=== PATIENT | female | born 1960 | race Caucasian/White ===

== ENCOUNTER 2016-12-07 15:28 | Emergency (ER) | payer BC ==
[2016-12-07] MEDS ORDERED: ONDANSETRON 4 MG/2 ML VIAL IVP STA (17:16)
[2016-12-07] MEDS ORDERED: SODIUM CHLORIDE 0.9% 1,000 ML IV STA (17:16)
[2016-12-07] MEDS ORDERED: ACETAMINOPHEN TAB 500 MG TAB PO STA (17:17)
[2016-12-07 17:37] LABS: Basophils % (A) 1 %; CH 31.2; CHCM 35.7; Eosinophils # (A) 0.1 k/uL (0-0.7); Eosinophils % (A) 3 %; HCT 38.4 % (34.0-46.0); HGB 12.8 gm/dL (11.4-16.0); Luc # (Auto) 0.13; Luc % (Auto) 4; Lymphocytes # (A) 1.2 k/uL (1.0-4.8); Lymphocytes % (A) 31 %; MCH 29.3 pg (25.0-35.0); MCHC 33.3 g/dL (31.0-37.0); MCV 87.8 fL (80.0-100.0); Mean Platelet Volume 8.7; Monocytes # (A) 0.3 k/uL (0-1.0); Monocytes % (A) 7 %; Neutrophils % (A) 54 %; RBC 4.37 m/uL (3.80-5.40); RDW 12.7 % (11.5-15.5); WBC 3.7 k/uL (3.8-10.6); WBC (Perox) 3.67
[2016-12-07 17:47] LABS: ALT 68 U/L (9-52); AST 51 U/L (14-36); Alkaline Phosphatase 68 U/L (38-126); Amylase 34 U/L (30-110); Anion Gap 11 mmol/L; Blood Urea Nitrogen 13 mg/dL (7-17); Calcium 8.5 mg/dL (8.4-10.2); Carbon Dioxide 24 mmol/L (22-30); Chloride 109 mmol/L (98-107); Glucose 90 mg/dL (74-99); Non-African American GFR(MDRD) >60 (>60 ml/min/1.73 sqM); Potassium 3.3 mmol/L (3.5-5.1); Sodium 144 mmol/L (137-145); Total Bilirubin 0.7 mg/dL (0.2-1.3); Total Protein 6.5 g/dL (6.3-8.2)
--- NOTE | 2016-12-07 17:51 | ED ---
General Adult HPI - General Chief complaint: Nausea/Vomiting/Diarrhea Stated complaint: Fever/Vomiting Time Seen by Provider: 12/07/16 17:13 Source: patient, RN notes reviewed Mode of arrival: ambulatory Limitations: no limitations - History of Present Illness Initial comments: 56-year-old female presents emergency Department chief complaint generalized not feeling well. Patient states she's been sick since Friday with fever, chills, bodyaches, cough, congestion, nausea vomiting and diarrhea. Patient states that she saw her primary care physician and has been on azithromycin for last few days. Patient was advised to come emergency Department if symptoms worsen. Patient states she's been taking ibuprofen every 6 hours with no relief of her fever. Patient states she has some abdominal cramping at times and states that the seizures surrounded with her diarrhea. Patient states she has no specific abdominal pain. Denies any flank pain. States her cough is slightly productive but mostly dry. Denies sore throat, ear pain. - Related Data Home Medications Medication Instructions Recorded Confirmed Azithromycin [Zithromax Z-pack] See Taper PO DAILY 12/07/16 12/07/16 Ergocalciferol (Vitamin D2) 50,000 unit PO Q7D 12/07/16 12/07/16 [Vitamin D2] Ibuprofen [Motrin] 800 mg PO Q6HR PRN 12/07/16 12/07/16 Previous Rx's Medication Instructions Recorded Ciprofloxacin HCl [Cipro] 500 mg PO Q12HR #14 tablet 12/07/16 Ondansetron Odt [Zofran Odt] 4 mg PO Q8HR PRN #10 tab 12/07/16 Allergies Allergy/AdvReac Type Severity Reaction Status Date / Time cephalexin [From Keflex] Allergy Unknown Verified 12/07/16 18:04 codeine Allergy Nausea & Verified 12/07/16 18:04 Vomiting Penicillins Allergy Rash/Hives Verified 12/07/16 18:04 Review of Systems ROS Statement: Those systems with pertinent positive or pertinent negative responses have been documented in the HPI. ROS Other: All systems not noted in ROS Statement are negative. Past Medical History Past Medical History: Hypertension Additional Past Medical History / Comment(s): angioedema History of Any Multi-Drug Resistant Organisms: None Reported Past Surgical History: Cardiac Ablation Past Psychological History: No Psychological Hx Reported Smoking Status: Never smoker Past Alcohol Use History: None Reported Past Drug Use History: None Reported General Exam Limitations: no limitations General appearance: alert, in no apparent distress Head exam: Present: atraumatic, normocephalic, normal inspection Eye exam: Present: normal appearance, PERRL, EOMI. Absent: scleral icterus, conjunctival injection, periorbital swelling ENT exam: Present: normal exam, normal oropharynx, mucous membranes moist, TM's normal bilaterally, normal external ear exam Neck exam: Present: normal inspection, full ROM. Absent: tenderness, meningismus, lymphadenopathy Respiratory exam: Present: normal lung sounds bilaterally. Absent: respiratory distress, wheezes, rales, rhonchi, stridor Cardiovascular Exam: Present: regular rate, normal rhythm, normal heart sounds. Absent: systolic murmur, diastolic murmur, rubs, gallop, clicks GI/Abdominal exam: Present: soft, normal bowel sounds. Absent: distended, tenderness, guarding, rebound, rigid Neurological exam: Present: alert, oriented X3, CN II-XII intact Skin exam: Present: warm, dry, intact, normal color. Absent: rash Course Vital Signs 12/07/16 12/07/16 12/07/16 15:45 18:03 18:39 Temperature 101.1 F H 99.2 F 98.6 F Pulse Rate 76 70 66 Respiratory 20 17 15 Rate Blood Pressure 152/89 146/74 144/70 O2 Sat by Pulse 98 98 96 Oximetry Medical Decision Making - Medical Decision Making 56-year-old female presented emergency department for nausea vomiting along with cough and congestion. Patient x-ray shows no acute abnormality. Patient we switched to ciprofloxacin for urinary tract infection. Patient will be given Zofran to go home with. Return parameters were discussed. - Lab Data Result diagrams: 12/07/16 16:25 12/07/16 16:25 Lab Results 12/07/16 12/07/16 12/07/16 Range/Units 16:25 16:25 16:25 WBC 3.7 L (3.8-10.6) k/uL RBC 4.37 (3.80-5.40) m/uL Hgb 12.8 (11.4-16.0) gm/dL Hct 38.4 (34.0-46.0) % MCV 87.8 (80.0-100.0) fL MCH 29.3 (25.0-35.0) pg MCHC 33.3 (31.0-37.0) g/dL RDW 12.7 (11.5-15.5) % Plt Count 131 L (150-450) k/uL Neutrophils % 54 % Lymphocytes % 31 % Monocytes % 7 % Eosinophils % 3 % Basophils % 1 % Neutrophils # 2.0 (1.3-7.7) k/uL Lymphocytes # 1.2 (1.0-4.8) k/uL Monocytes # 0.3 (0-1.0) k/uL Eosinophils # 0.1 (0-0.7) k/uL Basophils # 0.0 (0-0.2) k/uL Sodium 144 (137-145) mmol/L Potassium 3.3 L (3.5-5.1) mmol/L Chloride 109 H (98-107) mmol/L Carbon Dioxide 24 (22-30) mmol/L Anion Gap 11 mmol/L BUN 13 (7-17) mg/dL Creatinine 0.80 (0.52-1.04) mg/dL Est GFR (MDRD) Af Amer >60 (>60 ml/min/1.73 sqM) Est GFR (MDRD) Non-Af >60 (>60 ml/min/1.73 sqM) Glucose 90 (74-99) mg/dL Plasma Lactic Acid Shahram 0.9 (0.7-2.0) mmol/L Calcium 8.5 (8.4-10.2) mg/dL Total Bilirubin 0.7 (0.2-1.3) mg/dL AST 51 H (14-36) U/L ALT 68 H (9-52) U/L Alkaline Phosphatase 68 (38-126) U/L Total Protein 6.5 (6.3-8.2) g/dL Albumin 3.8 (3.5-5.0) g/dL Amylase 34 (30-110) U/L Lipase 63 (23-300) U/L Urine Color Urine Appearance (Clear) Urine pH (5.0-8.0) Ur Specific [place] (1.001-1.035) Urine Protein (Negative) Urine Glucose (UA) (Negative) Urine Ketones (Negative) Urine Blood (Negative) Urine Nitrate (Negative) Urine Bilirubin (Negative) Urine Urobilinogen (<2.0) mg/dL Ur Leukocyte Esterase (Negative) Urine RBC (0-5) /hpf Urine WBC (0-5) /hpf Ur Squamous Epith Cells (0-4) /hpf Hyaline Casts (0-2) /lpf Urine Mucus (None) /hpf Influenza Type A RNA (Not Detectd) Influenza Type B (PCR) (Not Detectd) 12/07/16 12/07/16 Range/Units 17:30 18:30 WBC (3.8-10.6) k/uL RBC (3.80-5.40) m/uL Hgb (11.4-16.0) gm/dL Hct (34.0-46.0) % MCV (80.0-100.0) fL MCH (25.0-35.0) pg MCHC (31.0-37.0) g/dL RDW (11.5-15.5) % Plt Count (150-450) k/uL Neutrophils % % Lymphocytes % % Monocytes % % Eosinophils % % Basophils % % Neutrophils # (1.3-7.7) k/uL Lymphocytes # (1.0-4.8) k/uL Monocytes # (0-1.0) k/uL Eosinophils # (0-0.7) k/uL Basophils # (0-0.2) k/uL Sodium (137-145) mmol/L Potassium (3.5-5.1) mmol/L Chloride (98-107) mmol/L Carbon Dioxide (22-30) mmol/L Anion Gap mmol/L BUN (7-17) mg/dL Creatinine (0.52-1.04) mg/dL Est GFR (MDRD) Af Amer (>60 ml/min/1.73 sqM) Est GFR (MDRD) Non-Af (>60 ml/min/1.73 sqM) Glucose (74-99) mg/dL Plasma Lactic Acid Shahram (0.7-2.0) mmol/L Calcium (8.4-10.2) mg/dL Total Bilirubin (0.2-1.3) mg/dL AST (14-36) U/L ALT (9-52) U/L Alkaline Phosphatase (38-126) U/L Total Protein (6.3-8.2) g/dL Albumin (3.5-5.0) g/dL Amylase (30-110) U/L Lipase (23-300) U/L Urine Color Yellow Urine Appearance Cloudy H (Clear) Urine pH 5.5 (5.0-8.0) Ur Specific [place] 1.027 (1.001-1.035) Urine Protein Trace H (Negative) Urine Glucose (UA) Negative (Negative) Urine Ketones 1+ H (Negative) Urine Blood Negative (Negative) Urine Nitrate Negative (Negative) Urine Bilirubin Negative (Negative) Urine Urobilinogen <2.0 (<2.0) mg/dL Ur Leukocyte Esterase Large H (Negative) Urine RBC 2 (0-5) /hpf Urine WBC 38 H (0-5) /hpf Ur Squamous Epith Cells 1 (0-4) /hpf Hyaline Casts 1 (0-2) /lpf Urine Mucus Many H (None) /hpf Influenza Type A RNA Not Detected (Not Detectd) Influenza Type B (PCR) Not Detected (Not Detectd) Disposition Clinical Impression: Nausea vomiting and diarrhea, UTI (urinary tract infection), Upper respiratory infection Disposition: HOME SELF-CARE Condition: Stable Instructions: Acute Nausea and Vomiting (ED) Additional Instructions: Please return to the Emergency Department if symptoms worsen or any other concerns. Prescriptions: Ciprofloxacin HCl [Cipro] 500 mg PO Q12HR #14 tablet Ondansetron Odt [Zofran Odt] 4 mg PO Q8HR PRN #10 tab PRN Reason: Nausea Time of Disposition: 19:49
--- NOTE | 2016-12-07 18:36 | XR ---
EXAMINATION TYPE: XR chest 2V DATE OF EXAM: 12/07/2016 6:29 PM COMPARISON: NONE HISTORY: Cough and congestion TECHNIQUE: Frontal and lateral views of the chest are obtained. FINDINGS: Heart and mediastinum are normal. Lungs are clear. Diaphragm is normal. There are chest le ads. Bony thorax is intact. IMPRESSION: Normal chest
[2016-12-07 19:41] LABS: Appearance,Urine Cloudy (Clear); Bilirubin,Urine Negative (Negative); Glucose,Urine (UA) Negative (Negative); Ketones,Urine 1+ (Negative); Leukocyte Esterase,Urine Large (Negative); Mucus,Urine Many /hpf; Nitrite,Urine Negative (Negative); PH, Urine 5.5 (5.0-8.0); Particle Count 10442; Protein,Urine Trace (Negative); RBC,Urine 2 /hpf (0-5); Specific Gravity,Urine 1.027 (1.001-1.035); Squamous Epithelial Cell,Urine 1 /hpf (0-4); UA Billing (MACRO vs. MICRO) MICRO; Urobilinogen,Urine <2.0 mg/dL (<2.0); WBC,Urine 38 /hpf (0-5)
[2016-12-07] MEDS ORDERED: POTASSIUM CHLORIDE ER 20 MEQ TAB.ER PO STA (19:47)
[2016-12-07 20:17] VITALS: BP 157/73; PULSE 63; RESP 16; TEMP 97.3
== END 2016-12-07 20:17 | disposition home or self-care (01) ==
LOC: EC 15:28
DX: R11.2 Nausea with vomiting, unspecified (principal); R19.7 Diarrhea, unspecified; N39.0 Urinary tract infection, site not specified; J06.9 Acute upper respiratory infection, unspecified; I10 Essential (primary) hypertension; Z88.0 Allergy status to penicillin; Z88.1 Allergy status to other antibiotic agents; Z88.5 Allergy status to narcotic agent
CPT/HCPCS: 99284; 96374; 36415; 80053; 82150; 83605; 83690; 85025; 81001; 87502; 71020; J2405

== ENCOUNTER → 2017-08-07 | Outpatient (CLI) | payer BC | END | disposition home or self-care (01) | LOC: LABWHC1 11:43 | PROVIDERS: ATTEND Orthopaedic Surgery | DX: M79.641 Pain in right hand (principal); R22.31 Localized swelling, mass and lump, right upper limb; L08.89 Other specified local infections of the skin and subcutaneous tissue | CPT/HCPCS: 87070; 87205 ==

== ENCOUNTER 2017-08-12 10:00 | Day surgery (SDC) | payer BC ==
[2017-08-08 10:34] VITALS: BMI 29.1
[~2017-08-12 10:00] MED LIST: DEXAMETHASONE SOD PHOSPHATE 10 MG/ML 1 ML VIAL IV ONE; HYDROmorphone 0.5 MG/0.5 ML SYRINGE IVP PRN; LACTATED RINGERS 1,000 ML IV SCH; ONDANSETRON 4 MG/2 ML VIAL IVP ONE; Pre Op ABX Message 1 EACH MISC MISCELLANE ONE
[2017-08-12 10:20] VITALS: RESP 16; TEMP 98.2
[2017-08-12] MEDS ORDERED: fentaNYL (PF) 50 MCG/ML 2 ML AMP ONE (11:28)
[2017-08-12] MEDS ORDERED: MIDAZOLAM 2 MG/2 ML VIAL ONE (11:28)
[2017-08-12] MEDS ORDERED: PROPOFOL 10 MG/ML 20 ML VIAL IV ONE (11:28)
[2017-08-12] MEDS ORDERED: BUPIVACAINE (PF) 0.5% 30 ML VIAL SQ ONE ×2 (11:44)
[2017-08-12 12:53] VITALS: BP 162/71; PULSE 81
--- NOTE | 2017-08-14 12:29 | OP ---
OPERATIVE REPORT DATE OF SERVICE: 08/12/2017 SURGEON: Christopher Chavarria DO PREOPERATIVE DIAGNOSIS:: Gout infection distal interphalangeal joint of the right ring finger. POSTOPERATIVE DIAGNOSIS:: Acute inflammatory gout with calcification of the DIP joint of the right ring finger. OPERATION: Excision of gout tophi of the right ring finger DIP joint. PROCEDURE: The patient was taken to the operative suite and placed in supine position. General inhalation anesthesia was performed by the department of anesthesiology. Betadine prep was carried out over the right ring finger and hand. Sterile drapes applied in the usual manner. A longitudinal incision was developed over the right radial aspect of the DIP joint of the right ring finger. Incision was carried out over the dome of the mass. Blunt dissection through subcutaneous tissue was performed. Area was cultured. The area of gout tophi and calcification was excised from this area and irrigation performed. The calcific mass was removed in its entirety. The area was irrigated. Skin was approximated with 5-0 nylon suture in interrupted fashion. Patient placed in sterile dressing and transferred to recovery room in satisfactory postoperative condition. GROSS PATHOLOGY: There is evidence of calcific tendonitis, acute calcific inflammatory tendonitis of the right ring finger at the radial aspect of the DIP joint. MMODL / IJN: [id number] / [id number]
== END 2017-08-12 13:21 | disposition home or self-care (01) ==
LOC: OR 10:00
PROVIDERS: ATTEND Orthopaedic Surgery
DX: M1A.9XX1 Chronic gout, unspecified, with tophus (tophi) (principal); M65.241 Calcific tendinitis, right hand; I49.9 Cardiac arrhythmia, unspecified; I10 Essential (primary) hypertension; G47.33 Obstructive sleep apnea (adult) (pediatric); Z88.1 Allergy status to other antibiotic agents; Z88.5 Allergy status to narcotic agent; Z88.0 Allergy status to penicillin; Z88.8 Allergy status to other drugs, medicaments and biological substances; Z79.1 Long term (current) use of non-steroidal anti-inflammatories (NSAID); Z79.82 Long term (current) use of aspirin; Z79.899 Other long term (current) drug therapy; Z79.2 Long term (current) use of antibiotics; Z87.891 Personal history of nicotine dependence
CPT/HCPCS: 26160; 87070; 87205; 87075; J2250; J2405; J3010; J2704

== ENCOUNTER 2021-04-13 15:40 | Emergency (ER) | payer BC, OTHER ==
[2021-04-13 15:44] VITALS: BP 132/67; PULSE 78; RESP 18; TEMP 98.1
[2021-04-13] MEDS ORDERED: KETOROLAC 15 MG/ML 1 ML VIAL IM STA (15:58)
--- NOTE | 2021-04-13 15:58 | ED ---
General Adult HPI - General Chief complaint: Extremity Injury, Lower Stated complaint: rt knee injury Time Seen by Provider: 04/13/21 15:46 Source: patient Mode of arrival: ambulatory Limitations: no limitations - History of Present Illness Initial comments: 61-year-old female with a past medical history of hypertension, presents to the emergency room for a chief complaint of right knee pain. Patient reports that for the past several weeks she has had right knee pain. Patient states she saw her doctor for this who wrote her naproxen. States she did try this once but has not been taking it consistently. That upsets her stomach. Patient reports that today she was walking on this visit work and felt a pop in the knee and states it is now too painful to walk on. Patient denies falling. Patient denies any fevers or chills. Patient denies any previous surgeries to the right knee.Patient has no other complaints at this time including shortness of breath, chest pain, abdominal pain, nausea or vomiting, headache, or visual changes. - Related Data Home Medications Medication Instructions Recorded Confirmed Acetaminophen [Tylenol] 500 - 1,000 mg PO Q4-6H PRN 08/08/17 08/12/17 Aspirin 81 mg PO DAILY 08/08/17 08/08/17 Azithromycin [Zithromax Z-pack] 250 mg PO DIRECTED 08/08/17 08/12/17 traMADol HCL [Ultram] 50 mg PO Q6HR PRN 08/08/17 08/12/17 Previous Rx's Medication Instructions Recorded clindamycin HCL [Cleocin] 300 mg PO Q8H #15 cap 08/12/17 traMADol HCl [Ultram] 50 mg PO Q4H PRN #60 tab 08/12/17 Allergies Allergy/AdvReac Type Severity Reaction Status Date / Time cephalexin [From Keflex] Allergy Unknown Verified 04/13/21 15:44 codeine Allergy Nausea & Verified 04/13/21 15:44 Vomiting lisinopril Allergy angioedema Verified 04/13/21 15:44 Penicillins Allergy Rash/Hives Verified 04/13/21 15:44 Review of Systems ROS Statement: Those systems with pertinent positive or pertinent negative responses have been documented in the HPI. ROS Other: All systems not noted in ROS Statement are negative. Past Medical History Past Medical History: Hypertension, Sleep Apnea/CPAP/BIPAP Additional Past Medical History / Comment(s): has mass on rt hand 4th digit- lanced & culture in Dr Chavarria's office 08-08-17, uses cpap,angioedema,no longer needs tx for HTN,Atrioventricular Karel Re-entrant tachycardia History of Any Multi-Drug Resistant Organisms: None Reported Past Surgical History: Appendectomy, Cardiac Ablation Past Anesthesia/Blood Transfusion Reactions: No Reported Reaction, Motion Sickness Additional Past Anesthesia/Blood Transfusion Reaction / Comment(s): no hx blood transfusion Past Psychological History: No Psychological Hx Reported Smoking Status: Never smoker Past Alcohol Use History: Occasional Past Drug Use History: None Reported - Past Family History Mother Family Medical History: Cancer Additional Family Medical History / Comment(s): thyroid,Living in her 80's Father Family Medical History: Cancer, Myocardial Infarction ([place]) Additional Family Medical History / Comment(s): stomach, w/ [place] General Exam Limitations: no limitations General appearance: alert, in no apparent distress Head exam: Present: atraumatic, normocephalic, normal inspection Eye exam: Present: normal appearance, PERRL, EOMI. Absent: scleral icterus, conjunctival injection, periorbital swelling ENT exam: Present: normal exam, mucous membranes moist Neck exam: Present: normal inspection, full ROM. Absent: tenderness, meningismus, lymphadenopathy Respiratory exam: Present: normal lung sounds bilaterally. Absent: respiratory distress, wheezes, rales, rhonchi, stridor Cardiovascular Exam: Present: regular rate, normal rhythm, normal heart sounds. Absent: systolic murmur, diastolic murmur, rubs, gallop, clicks Extremities exam: Present: normal capillary refill (Capillary refill less than 2 seconds, DP pulse 2+ right lower extremity.), other (sensation intact RLE). Absent: full ROM (Patient is 90 flexion of the right knee, full extension.), tenderness, pedal edema, joint swelling, calf tenderness Neurological exam: Present: alert Course Vital Signs 04/13/21 15:41 Temperature 98.1 F Pulse Rate 78 Respiratory 18 Rate Blood Pressure 132/67 O2 Sat by Pulse 96 Oximetry Medical Decision Making - Medical Decision Making Vitals are stable. HPI and physical exam as documented. No erythema, edema. No calf pain or tenderness. Knee x-ray shows no acute osseous abnormality. However there is concern for possible soft tissue injury. Therefore knee immobilizer was applied and patient was given crutches here in the emergency r oom. Patient already as an appointment with orthopedics coming up this next week. Patient will return for any worsening symptoms. Disposition Clinical Impression: Knee pain, right Disposition: HOME SELF-CARE Condition: Good Instructions (If sedation given, give patient instructions): Knee Sprain (ED) Additional Instructions: Please take Motrin and Tylenol for pain. Please follow-up with orthopedics in one to 2 days. Return to the emergency room for any worsening symptoms. Is patient prescribed a controlled substance at d/c from ED?: No Referrals: Annemarie Doherty MD [Primary Care Provider] - 1-2 days Abdoulaye Ng MD [STAFF PHYSICIAN] - 1-2 days Time of Disposition: 16:34
--- NOTE | 2021-04-13 16:16 | XR ---
EXAMINATION TYPE: XR knee complete RT DATE OF EXAM: 04/13/2021 COMPARISON: None HISTORY: Right knee pain TECHNIQUE: 3 view right knee FINDINGS: Radial lateral compartment Knee joint spaces appear preserved. Some posterior inferior arzate llar spurring is present. Some narrowing of the patellofemoral joint space may be present. No acute fractures are evident. No joint effusion is evident. Follow up exams can be performed 7-10 days from acute trauma for continued pain. IMPRESSION: 1. No acute osseous abnormality right knee
== END 2021-04-13 16:56 | disposition home or self-care (01) ==
LOC: EC 15:40
DX: M25.561 Pain in right knee (principal); I10 Essential (primary) hypertension; G47.33 Obstructive sleep apnea (adult) (pediatric); Z99.81 Dependence on supplemental oxygen
CPT/HCPCS: 96372; 99283

== ENCOUNTER → 2021-11-29 | Outpatient (CLI) | payer BC ==
--- NOTE | 2021-11-30 03:52 | MR ---
EXAMINATION TYPE: MR lumbar spine wo con DATE OF EXAM: 11/29/2021 COMPARISON: None HISTORY: Low back pain in to front of Right Thigh Multiplanar multiecho imaging of the lumbar spine without contrast. The lumbar vertebrae have normal alignment. There is a mild degenerative first-degree L4-5 spondyloli sthesis. There is slight narrowing of the disc spaces from L2 to L5. There is no compression fracture . There is spinal stenosis at L4-5 due to subluxation deformity and facet arthropathy. There is mild narrowing of the lumbar neural foramina at L3-4 and L4-5 on the right side due to disc space narrowin g and facet arthropathy. There is no lumbar paraspinal mass. There is no evidence of focal bone destruction. IMPRESSION: Spondylotic changes in the lumbar spine from L2 to S1. Mild spinal stenosis at L4-5. Degenerative mil d L4-5 spondylolisthesis.
== END | disposition home or self-care (01) ==
LOC: RADMRIMAIN 15:59
PROVIDERS: ATTEND Physical Medicine & Rehabilitation
DX: M48.061 Spinal stenosis, lumbar region without neurogenic claudication (principal); M47.817 Spondylosis without myelopathy or radiculopathy, lumbosacral region; M43.17 Spondylolisthesis, lumbosacral region
CPT/HCPCS: 72148

== ENCOUNTER 2024-04-08 06:05 | Inpatient (IN) | payer BC ==
--- NOTE | 2024-04-08 07:05 | ED ---
Skin/Abscess/FB HPI - General Chief complaint: Skin/Abscess/Foreign Body Stated complaint: headache fever shingles weakness Time Seen by Provider: 04/08/24 06:38 Source: patient, RN notes reviewed Mode of arrival: ambulatory Limitations: no limitations - History of Present Illness Initial comments: This is a 64-year-old female who presents to the emergency department for problems related to shingles. States that she was diagnosed with shingles 2 days ago and started on antiviral management at urgent care. They also gave her a shot of steroids. The shingles is on the right side of her back wrapping around to the right side of her abdomen. Last night and this morning she started to develop a headache, fevers, nausea, and vomiting. She took two extra strength Tylenol without relief in symptoms. States that when she had shingles 20 years ago she was hospitalized for 2 weeks and the shingles had spread throughout her body. - Related Data Home Medications Medication Instructions Recorded Confirmed Acetaminophen [Tylenol Arthritis] 1,300 mg PO Q6H PRN 04/08/24 04/08/24 Cyanocobalamin (Vitamin B-12) 1,000 mcg PO DAILY 04/08/24 04/08/24 [Vitamin B-12] Diclofenac Sodium Gel [Voltaren 1% 2 - 4 gm TOPICAL QID PRN 04/08/24 04/08/24 Gel] Ergocalciferol (Vitamin D2) 1,250 mcg PO Q30D 04/08/24 04/08/24 [Drisdol (50,000 Iu)] Famciclovir [Famvir] 500 mg PO Q8HR 04/08/24 04/08/24 Metoprolol Tartrate [Lopressor] 25 mg PO BID 04/08/24 04/08/24 hydroCHLOROthiazide [Hydrodiuril] 25 mg PO DAILY 04/08/24 04/08/24 Allergies Allergy/AdvReac Type Severity Reaction Status Date / Time Penicillins Allergy Rash/Hives Verified 04/08/24 09:33 cephalexin [From Keflex] AdvReac shortness Verified 04/08/24 09:33 of breath, heart pounding codeine AdvReac Nausea & Verified 04/08/24 09:33 Vomiting lisinopril AdvReac angioedema Verified 04/08/24 09:33 Review of Systems ROS Statement: Those systems with pertinent positive or pertinent negative responses have been documented in the HPI. ROS Other: All systems not noted in ROS Statement are negative. Past Medical History Past Medical History: Hypertension, Sleep Apnea/CPAP/BIPAP Additional Past Medical History / Comment(s): has mass on rt hand 4th digit- lanced & culture in Dr Chavarria's office 08-08-17, uses cpap,angioedema,no longer needs tx for HTN,Atrioventricular Karel Re-entrant tachycardia History of Any Multi-Drug Resistant Organisms: None Reported Past Surgical History: Appendectomy, Cardiac Ablation Past Anesthesia/Blood Transfusion Reactions: No Reported Reaction, Motion Sickness Additional Past Anesthesia/Blood Transfusion Reaction / Comment(s): no hx blood transfusion Past Psychological History: No Psychological Hx Reported Smoking Status: Never smoker Past Alcohol Use History: Occasional Past Drug Use History: None Reported - Past Family History Mother Family Medical History: Cancer Additional Family Medical History / Comment(s): thyroid,Living in her 80's Father Family Medical History: Cancer, Myocardial Infarction ([place]) Additional Family Medical History / Comment(s): stomach, w/ [place] General Exam Limitations: no limitations General appearance: alert, in no apparent distress Head exam: Present: atraumatic, normocephalic, normal inspection Respiratory exam: Present: normal lung sounds bilaterally. Absent: respiratory distress, wheezes, rales, rhonchi, stridor Cardiovascular Exam: Present: regular rate, normal rhythm, normal heart sounds. Absent: systolic murmur, diastolic murmur, rubs, gallop, clicks GI/Abdominal exam: Present: soft, normal bowel sounds. Absent: distended, tenderness, guarding, rebound, rigid Neurological exam: Present: alert, oriented X3, CN II-XII intact Psychiatric exam: Present: normal affect, normal mood Skin exam: Present: other (Shingles rash on the right mid back wrapping around to the abdomen. Rash does not cross midline) Course Vital Signs 04/08/24 04/08/24 04/08/24 06:11 08:50 09:00 Temperature 100.3 F H 99.8 F H 99.5 F Pulse Rate 88 85 Respiratory 18 16 Rate Blood Pressure 157/75 125/64 O2 Sat by Pulse 100 96 Oximetry Medical Decision Making - Medical Decision Making This is a 64-year-old female who presents to the emergency department for a rash related to shingles, headaches, nausea, and vomiting. Was pt. sent in by a medical professional or institution? @ -No Did you speak to anyone other than the patient for history? @ -No Did you review nursing and triage notes? @ -Yes, and I agree, it is accurate with regards to the patient's symptoms. Were old charts reviewed? @ -No Differential Diagnosis? @ -Differential Headache: Migraine, tension, cluster, carbon monoxide, central venous thrombosis, pension karma temporal arteritis, acute closure glaucoma, intercranial hemorrhage, mastoiditis, sinusitis, head injury, this is not meant to be an all-inclusive list. EKG interpreted by me (3pts min.)? @ -Not obtained X-rays interpreted by me (1pt min.)? @ -Not obtained CT interpreted by me (1pt min.)? @ -Not obtained U/S interpreted by me (1pt. min.)? @ -Not obtained What testing was considered but not performed? (CT, X-rays, U/S, labs)? Why? @ -None What meds were considered but not given? Why? @ -None Did you discuss the management of the patient with other professionals? @ -Yes, Renee Grubbs with [facility], who accepts the patient for admission Did you reconcile home meds? @ -Yes Was smoking cessation discussed for >3mins.? @ -No Was critical care preformed (if so, how long)? @ -No Were there social determinants of health that impacted care today? How? (Homelessness, low income, unemployed, alcoholism, drug addiction, transp ortation, low edu. Level, literacy, decrease access to med. care, snf, rehab)? @ -No Was there de-escalation of care discussed even if they declined? (Discuss DNR or withdrawal of care, Hospice)? @ -No What co-morbidities impacted this encounter? (DM, HTN, Smoking, COPD, CAD, Cancer, CVA, Hep., AIDS, mental health diagnosis, sleep apnea, morbid obesity)? @ -HTN Was patient admitted / discharged? @ -Admitted. Patient had temperature of 100.3 F on arrival. Lab work unremarkable. Patient treated with IV fluids, Toradol, and Zofran. She continued to be in fairly significant distress with regards to the pain and nausea. Given the patient's level of distress as well as history of shingles becoming disseminated leading to severe infection and hospitalization, patient admitted to medicine for further management. She was started on IV acyclovir. Consult placed for infectious disease. Undiagnosed new problem with uncertain prognosis? @ -None Drug Therapy requiring intensive monitoring for toxicity (Heparin, Nitro, Insulin, Cardizem)? @ -None Were any procedures done? @ -None Diagnosis/symptom? @ -Shingles, intractable nausea vomiting Acute, or Chronic, or Acute on Chronic? @ -Acute Uncomplicated (without systemic symptoms) or Complicated (systemic symptoms)? @ -Complicated Side effects of treatment? @ -None Exacerbation, Progression, or Severe Exacerbation] @ -Not applicable Poses a threat to life or bodily function? @ -Yes This case was discussed in detail with the attending ED physician, Dr. Rodriguez. Presentation, findings, and treatment plan discussed in detail as well. - Lab Data Result diagrams: 04/08/24 07:11 04/08/24 07:11 Lab Results 04/08/24 04/08/24 Range/Units 07:11 07:11 WBC 7.5 (3.8-10.6) k/uL RBC 4.27 (3.80-5.40) m/uL Hgb 13.1 (11.4-16.0) gm/dL Hct 39.8 (34.0-46.0) % MCV 93.4 (80.0-100.0) fL MCH 30.6 (25.0-35.0) pg MCHC 32.8 (31.0-37.0) g/dL RDW 13.3 (11.5-15.5) % Plt Count 143 L (150-450) k/uL MPV 8.1 Neutrophils % 67 % Lymphocytes % 18 % Monocytes % 8 % Eosinophils % 3 % Basophils % 1 % Neutrophils # 5.0 (1.3-7.7) k/uL Lymphocytes # 1.4 (1.0-4.8) k/uL Monocytes # 0.6 (0-1.0) k/uL Eosinophils # 0.2 (0-0.7) k/uL Basophils # 0.1 (0-0.2) k/uL Sodium 138 (137-145) mmol/L Potassium 4.1 (3.5-5.1) mmol/L Chloride 107 (98-107) mmol/L Carbon Dioxide 24 (22-30) mmol/L Anion Gap 7 mmol/L BUN 20 H (7-17) mg/dL Creatinine 0.72 (0.52-1.04) mg/dL Est GFR (CKD-EPI)AfAm >90 (>60 ml/min/1.73 sqM) Est GFR (CKD-EPI)NonAf 90 (>60 ml/min/1.73 sqM) Glucose 106 H (74-99) mg/dL Calcium 9.2 (8.4-10.2) mg/dL Total Bilirubin 0.9 (0.2-1.3) mg/dL AST 30 (14-36) U/L ALT 22 (4-34) U/L Alkaline Phosphatase 80 (38-126) U/L Total Protein 6.9 (6.3-8.2) g/dL Albumin 4.3 (3.5-5.0) g/dL Disposition Clinical Impression: Shingles, Intractable nausea and vomiting Disposition: ADMITTED IP TO THIS HOSP
[2024-04-08] MEDS: KETOROLAC 15 MG/ML 1 ML VIAL IVP STA (07:13)
[2024-04-08] MEDS: ONDANSETRON 4 MG/2 ML VIAL IVP STA (07:13)
[2024-04-08] MEDS: SODIUM CHLORIDE 0.9% 1,000 ML IV STA (07:14)
[2024-04-08 07:34] LABS: Basophils # (A) 0.1 k/uL (0-0.2); Basophils % (A) 1 %; Eosinophils # (A) 0.2 k/uL (0-0.7); Eosinophils % (A) 3 %; HCT 39.8 % (34.0-46.0); HGB 13.1 gm/dL (11.4-16.0); Lymphocytes # (A) 1.4 k/uL (1.0-4.8); Lymphocytes % (A) 18 %; MCH 30.6 pg (25.0-35.0); MCHC 32.8 g/dL (31.0-37.0); MCV 93.4 fL (80.0-100.0); Mean Platelet Volume 8.1; Monocytes # (A) 0.6 k/uL (0-1.0); Monocytes % (A) 8 %; Neutrophils % (A) 67 %; Platelet Count 143 k/uL (150-450); RBC 4.27 m/uL (3.80-5.40); RDW 13.3 % (11.5-15.5); WBC 7.5 k/uL (3.8-10.6)
[2024-04-08 07:35] LABS: ALT 22 U/L (4-34); AST 30 U/L (14-36); African American GFR (CKD) >90 (>60 ml/min/1.73 sqM); Albumin 4.3 g/dL (3.5-5.0); Alkaline Phosphatase 80 U/L (38-126); Anion Gap 7 mmol/L; Blood Urea Nitrogen 20 mg/dL (7-17); Calcium 9.2 mg/dL (8.4-10.2); Carbon Dioxide 24 mmol/L (22-30); Chloride 107 mmol/L (98-107); Glucose 106 mg/dL (74-99); Non-African American GFR(CKD) 90 (>60 ml/min/1.73 sqM); Potassium 4.1 mmol/L (3.5-5.1); Sodium 138 mmol/L (137-145); Total Bilirubin 0.9 mg/dL (0.2-1.3); Total Protein 6.9 g/dL (6.3-8.2)
[2024-04-08] MEDS ORDERED: NALOXONE 0.4 MG/ML 1 ML VIAL IV PRN (08:10)
[2024-04-08] MEDS: ACETAMINOPHEN TAB 325 MG TAB PO PRN (08:23)
[2024-04-08] MEDS: SODIUM CHLORIDE 0.9% 1,000 ML IV SCH (08:48)
[2024-04-08] MEDS: ACYCLOVIR SODIUM 650 MG in SODIUM CHLORIDE 0.9% 100 ML IV ONE (08:48)
[2024-04-08] MEDS: PANTOPRAZOLE 40 MG/10 ML VIAL IV SCH (08:53)
[2024-04-08] MEDS: HYDROcodone/APAP 5-325MG 1 EACH TAB PO PRN (09:01)
[2024-04-08] MEDS ORDERED: DICLOFENAC SODIUM GEL 50 GM TUBE TOPICAL PRN (10:08)
[2024-04-08] MEDS: ERGOCALCIFEROL 1,250 MCG (50,000 IU) CAPSULE PO SCH (11:33)
[2024-04-08] MEDS: IBUPROFEN 400 MG TAB PO PRN (12:55)
--- NOTE | 2024-04-08 14:23 | P.HPIM ---
History of Present Illness Patient is a pleasant 64-year-old female came in with complaints of nausea vomiting and fever chills. Patient was started on antiviral treatment with acyclovir for her shingles on the right chest and back area below the breast. Patient denies any cough denies any dysuria. Patient is on multiple pain medications. Patient nausea is better today. No leukocytosis. I do not have any chest x-ray or UA available at this time although infectious diseases following the patient. REVIEW OF SYSTEMS: CONSTITUTIONAL: No fever, no malaise, no fatigue. HEENT: No recent visual problems or hearing problems. Denied any sore throat. CARDIOVASCULAR: No chest pain, orthopnea, PND, no palpitations, no syncope. PULMONARY: No shortness of breath, no cough, no hemoptysis. GASTROINTESTINAL: No diarrhea, no nausea, no vomiting, no abdominal pain. NEUROLOGICAL: No headaches, no weakness, no numbness. HEMATOLOGICAL: Denies any bleeding or petechiae. GENITOURINARY: Denies any burning micturition, frequency, or urgency. MUSCULOSKELETAL/RHEUMATOLOGICAL: Denies any joint pain, swelling, or any muscle pain. ENDOCRINE: Denies any polyuria or polydipsia. The rest of the 14-point review of systems is negative. PHYSICAL EXAMINATION: GENERAL: The patient is alert and oriented x3, not in any acute distress. Well developed, well nourished. HEENT: Pupils are round and equally reacting to light. EOMI. No scleral icterus. No conjunctival pallor. Normocephalic, atraumatic. No pharyngeal erythema. No thyromegaly. CARDIOVASCULAR: S1 and S2 present. No murmurs, rubs, or gallops. PULMONARY: Chest is clear to auscultation, no wheezing or crackles. ABDOMEN: Soft, nontender, nondistended, normoactive bowel sounds. No palpable organomegaly. MUSCULOSKELETAL: No joint swelling or deformity. EXTREMITIES: No cyanosis, clubbing, or pedal edema. NEUROLOGICAL: Gross neurological examination did not reveal any focal deficits. SKIN: Shingles lesions as mentioned above Assessment and plan -This fever can be secondary to shingles although we need to rule out other sources of infection will obtain a chest x-ray, urine urine analysis and urine cultures patient will be continued on acyclovir -Shingles involving the chest and back lower thoracic area continue with acyclovir patient will be resumed on the pain medications and patient will be started on Lyrica for neuropathic pain. -Possible gastritis or peptic ulcer disease/stress ulcers for which patient is on Protonix -Hypertension -Sleep apnea DVT prophylaxis: Lovenox Past Medical History Past Medical History: Hypertension, Sleep Apnea/CPAP/BIPAP Additional Past Medical History / Comment(s): has mass on rt hand 4th digit- lanced & culture in Dr Chavarria's office 08-08-17, uses cpap,angioedema,no longer needs tx for HTN,Atrioventricular Karel Re-entrant tachycardia History of Any Multi-Drug Resistant Organisms: None Reported Past Surgical History: Appendectomy, Cardiac Ablation Past Anesthesia/Blood Transfusion Reactions: No Reported Reaction, Motion Sickness Additional Past Anesthesia/Blood Transfusion Reaction / Comment(s): no hx blood transfusion Past Psychological History: No Psychological Hx Reported Smoking Status: Never smoker Past Alcohol Use History: Occasional Past Drug Use History: None Reported - Past Family History Mother Family Medical History: Cancer Additional Family Medical History / Comment(s): thyroid,Living in her 80's Father Family Medical History: Cancer, Myocardial Infarction ([place]) Additional Family Medical History / Comment(s): stomach, w/ [place] Medications and Allergies Home Medications Medication Instructions Recorded Confirmed Type Acetaminophen [Tylenol Arthritis] 1,300 mg PO Q6H PRN 04/08/24 04/08/24 History Cyanocobalamin (Vitamin B-12) 1,000 mcg PO DAILY 04/08/24 04/08/24 History [Vitamin B-12] Diclofenac Sodium Gel [Voltaren 1% 2 - 4 gm TOPICAL QID PRN 04/08/24 04/08/24 History Gel] Ergocalciferol (Vitamin D2) 1,250 mcg PO Q30D 04/08/24 04/08/24 History [Drisdol (50,000 Iu)] Famciclovir [Famvir] 500 mg PO Q8HR 04/08/24 04/08/24 History Metoprolol Tartrate [Lopressor] 25 mg PO BID 04/08/24 04/08/24 History hydroCHLOROthiazide [Hydrodiuril] 25 mg PO DAILY 04/08/24 04/08/24 History Allergies Allergy/AdvReac Type Severity Reaction Status Date / Time Penicillins Allergy Rash/Hives Verified 04/08/24 09:33 cephalexin [From Keflex] AdvReac shortness Verified 04/08/24 09:33 of breath, heart pounding codeine AdvReac Nausea & Verified 04/08/24 09:33 Vomiting lisinopril AdvReac angioedema Verified 04/08/24 09:33 Physical Exam Vitals: Vital Signs Temp Pulse Resp BP Pulse Ox 04/08/24 12:49 98.7 F 04/08/24 09:00 99.5 F 85 16 125/64 96 04/08/24 08:50 99.8 F H 04/08/24 06:11 100.3 F H 88 18 157/75 100 Intake and Output 04/07/24 04/08/24 04/08/24 22:59 06:59 14:59 Other: Weight 66.678 kg Results CBC & Chem 7: 04/08/24 07:11 04/08/24 07:11 Labs: Abnormal Lab Results - Last 24 Hours (Table) 04/08/24 04/08/24 Range/Units 07:11 07:11 Plt Count 143 L (150-450) k/uL BUN 20 H (7-17) mg/dL Glucose 106 H (74-99) mg/dL
--- NOTE | 2024-04-08 15:39 | XR ---
EXAMINATION TYPE: XR chest 2V DATE OF EXAM: 04/08/2024 COMPARISON: 12/07/2016 TECHNIQUE: PA and lateral views submitted. HISTORY: Pneumonia FINDINGS: A left basilar subsegmental consolidation in similar prior exam likely the basis of chronic bronchiec tasis or atelectasis. Underlying COPD. Arthropathy of the shoulders.. Heart size normal and no overt failure. Osseous structures demonstrate hypertrophic and degenerative changes of the spine. IMPRESSION: 1. Left basilar linear consolidation favor basilar bronchiectasis, scarring or atelectasis over pneum onia. 2. COPD..
[2024-04-08] MEDS: ACYCLOVIR SODIUM 650 MG in SODIUM CHLORIDE 0.9% 100 ML IV SCH (15:51)
[2024-04-08 16:14] LABS: Appearance,Urine Clear (Clear); Bilirubin,Urine Negative (Negative); Blood,Urine Negative (Negative); Color,Urine Yellow; Glucose,Urine (UA) Negative (Negative); Ketones,Urine Negative (Negative); Leukocyte Esterase,Urine Negative (Negative); Nitrite,Urine Negative (Negative); PH, Urine 5.5 (5.0-8.0); Protein,Urine Negative (Negative); Specific Gravity,Urine 1.024 (1.001-1.035); Urobilinogen,Urine <2.0 mg/dL (<2.0)
--- NOTE | 2024-04-08 17:03 | P.CONS ---
History of Present Illness - Reason for Consult Consult date: 04/08/24 - History of Present Illness Patient is a 64-year-old female with a past medical history significant for hypertension sleep apnea, has been sent to the ER concerning for worsening rash to the right trunk patient apparently was evaluated 2 days ago at the urgent care with the patient has been diagnosed with a shingles she did receive a dose of steroids and has been started on famciclovir however the patient noticed having increasing swelling redness to the rash area along with a burning pain describing it to be moderate to severe intensity without any radiation with associated swelling and redness did have some vesicle formation and open wound or any drainage with the symptoms the patient has been evaluated on presentation to the hospital patient did have a low-grade fever of 100.3 F patient was not tachycardic hypotensive or hypoxic and no need for supplemental oxygen white count is 7.5 creatinine 0.72 urine has been negative patient was started on IV acyclovir infectious was consulted for further management of antibiotic therapy patient denies having any headache or URI symptoms no chest pain shortness of breath or cough no nausea or vomiting abdominal pain or diarrhea Past Medical History Past Medical History: Hypertension, Sleep Apnea/CPAP/BIPAP Additional Past Medical History / Comment(s): has mass on rt hand 4th digit-la nced & culture in Dr Chavarria's office 08-08-17, uses cpap,angioedema,no longer needs tx for HTN,Atrioventricular Karel Re-entrant tachycardia History of Any Multi-Drug Resistant Organisms: None Reported Past Surgical History: Appendectomy, Cardiac Ablation Past Anesthesia/Blood Transfusion Reactions: No Reported Reaction, Motion Sickness Additional Past Anesthesia/Blood Transfusion Reaction / Comm: no hx blood transfusion Past Psychological History: No Psychological Hx Reported Smoking Status: Never smoker Past Alcohol Use History: Occasional Past Drug Use History: None Reported - Past Family History Mother Family Medical History: Cancer Additional Family Medical History / Comment(s): thyroid,Living in her 80's Father Family Medical History: Cancer, Myocardial Infarction ([place]) Additional Family Medical History / Comment(s): stomach, w/ [place] Medications and Allergies Home Medications Medication Instructions Recorded Confirmed Type Acetaminophen [Tylenol Arthritis] 1,300 mg PO Q6H PRN 04/08/24 04/08/24 History Cyanocobalamin (Vitamin B-12) 1,000 mcg PO DAILY 04/08/24 04/08/24 History [Vitamin B-12] Diclofenac Sodium Gel [Voltaren 1% 2 - 4 gm TOPICAL QID PRN 04/08/24 04/08/24 History Gel] Ergocalciferol (Vitamin D2) 1,250 mcg PO Q30D 04/08/24 04/08/24 History [Drisdol (50,000 Iu)] Famciclovir [Famvir] 500 mg PO Q8HR 04/08/24 04/08/24 History Metoprolol Tartrate [Lopressor] 25 mg PO BID 04/08/24 04/08/24 History hydroCHLOROthiazide [Hydrodiuril] 25 mg PO DAILY 04/08/24 04/08/24 History Allergies Allergy/AdvReac Type Severity Reaction Status Date / Time Penicillins Allergy Rash/Hives Verified 04/08/24 09:33 cephalexin [From Keflex] AdvReac shortness Verified 04/08/24 09:33 of breath, heart pounding codeine AdvReac Nausea & Verified 04/08/24 09:33 Vomiting lisinopril AdvReac angioedema Verified 04/08/24 09:33 Physical Exam Vitals: Vital Signs Temp Pulse Resp BP Pulse Ox 04/08/24 06:11 100.3 F H 88 18 157/75 100 Intake and Output 04/07/24 04/08/24 04/08/24 22:59 06:59 14:59 Other: Weight 66.678 kg Results CBC & Chem 7: 04/10/24 07:51 04/10/24 07:51 Labs: Abnormal Lab Results - Last 24 Hours (Table) 04/08/24 04/08/24 Range/Units 07:11 07:11 Plt Count 143 L (150-450) k/uL BUN 20 H (7-17) mg/dL Glucose 106 H (74-99) mg/dL Assessment and Plan Plan: 1patient presented to hospital with vesicular rash involving the trunk and likely T5 dermatome with no evidence of any secondary cellulitis failing outpatient oral viral therapy possibly because of extensive infection no evidence of any secondary cellulitis 2-patient be advised acyclovir 10 mg/kg IV every 8 hours and monitor the patient closely for any signs of secondary bacterial infection keeping in mind her fever however white count has been normal We will follow on clinical condition and cultures to further adjust medication if needed Thank you for this consultation we will follow the patient along with you Dictation was produced using [employer] dictation software. please excuse any grammatical, word or spelling errors.
[2024-04-08] MEDS: METOPROLOL TARTRATE 25 MG TAB PO SCH (20:25)
[2024-04-08] MEDS: PREGABALIN 100 MG CAP PO SCH (20:25)
[2024-04-08] MEDS: ONDANSETRON 4 MG/2 ML VIAL IVP PRN (20:28)
[2024-04-08] MEDS: TRIMETHOBENZAMIDE 100 MG/ML 2 ML VIAL IM STA (21:45)
[2024-04-08] MEDS: PANTOPRAZOLE 40 MG/10 ML VIAL IVP SCH (21:55)
[2024-04-08] MEDS: MORPHINE SULFATE 4 MG/ML SYRINGE IV PRN (23:43)
[2024-04-09] MEDS: ONDANSETRON 4 MG/2 ML VIAL IVP PRN (07:23)
[2024-04-09] MEDS: CYANOCOBALAMIN 500 MCG TAB PO SCH (08:51)
[2024-04-09] MEDS: hydroCHLOROthiazide 25 MG TAB PO SCH (08:52)
[2024-04-09 10:27] LABS: HCT 34.5 % (37.2-46.3); HGB 11.1 g/dL (12.0-15.0); MCH 30.5 pg (27.0-32.0); MCHC 32.2 g/dL (32.0-37.0); MCV 94.8 FL (80.0-97.0); Mean Platelet Volume 10.7 FL (9.5-12.2); NRBC Per 100 WBC 0 X 10*3/uL (0.00-0.01); Platelet Count 123 X 10*3/uL (140-440); RBC 3.64 X 10*6/uL (4.10-5.20); RDW 13.1 % (11.5-14.5); WBC 7.32 X 10*3/uL (4.50-10.00)
[2024-04-09 10:40] LABS: Blood Urea Nitrogen 14.8 mg/dL (9.0-27.0); Calcium 7.9 mg/dL (8.7-10.3); Chloride 106 mmol/L (96-109); Glucose 107 mg/dL (70-110); Potassium 3.9 mmol/L (3.5-5.5); Sodium 139 mmol/L (135-145)
[2024-04-09] MEDS: ACETAMINOPHEN TAB 500 MG TAB PO PRN (16:30)
--- NOTE | 2024-04-10 07:44 | P.PN ---
Subjective Progress Note Date: 04/09/24 Patient is a pleasant 64-year-old female came in with complaints of nausea vomiting and fever chills. Patient was started on antiviral treatment with acyclovir for her shingles on the right chest and back area below the breast. Patient denies any cough denies any dysuria. Patient is on multiple pain med ications. Patient nausea is better today. No leukocytosis. I do not have any chest x-ray or UA available at this time although infectious diseases following the patient. 04/09/2024 Patient is evaluated in follow up on the medical floor. Continues to report pain to the vesicular rash under the left breast and on the back. Being treated for shingles. On lyrica for the burning sensation. Patient reports that has improved. She continues to report fever, malaise, and body aches. Chest xray came back showing left basilar linear consolidation favor basilar bronchiectasis scarring or atelectasis over pneumonia. Underlying COPD. Her white blood cell count is 7.32. Right is a Review of Systems Constitutional: Reports fatigue and fever Cardio vascular: denied any chest pain, palpitations Gastrointestinal: denied any nausea, vomiting, diarrhea Pulmonary: Denied any shortness of breath cough Neurologic denied any new focal deficits All inpatient medications were reviewed and appropriate changes in these medications as dictated in the interval history and assessment and plan. PHYSICAL EXAMINATION: GENERAL: The patient is alert and oriented x3, not in any acute distress. Well developed, well nourished. HEENT: Pupils are round and equally reacting to light. EOMI. No scleral icterus. No conjunctival pallor. Normocephalic, atraumatic. No pharyngeal erythema. No thyromegaly. CARDIOVASCULAR: S1 and S2 present. No murmurs, rubs, or gallops. PULMONARY: Chest is clear to auscultation, no wheezing or crackles. ABDOMEN: Soft, nontender, nondistended, normoactive bowel sounds. No palpable organomegaly. MUSCULOSKELETAL: No joint swelling or deformity. EXTREMITIES: No cyanosis, clubbing, or pedal edema. NEUROLOGICAL: Gross neurological examination did not reveal any focal deficits. SKIN: Shingles lesions as mentioned above Assessment and plan -This fever can be secondary to shingles although we need to rule out other sources of infection will obtain a chest x-ray, urine urine analysis and urine cultures patient will be continued on acyclovir -Shingles involving the chest and back lower thoracic area continue with acyclovir patient will be resumed on the pain medications and patient will be started on Lyrica for neuropathic pain. -Possible gastritis or peptic ulcer disease/stress ulcers for which patient is on Protonix -Hypertension -Sleep apnea DVT prophylaxis: Lovenox GI prophylaxis Check procalcitonin level continue supportive care. ID consultation The impression and plan of care has been dictated by Jolanta Grant, Nurse Practitioner as directed. Dr. Kenny MD I have performed a history and physical examination and medical decision making of this patient, discussed the same with the dictator, and agree with the dictators assessment and plan as written, documented as a scribe. Based on total visit time, I have performed more than 50% of this visit. Objective - Vital Signs Vital signs: Vital Signs Temp 99.3 F 04/09/24 07:00 Pulse 76 04/09/24 07:00 Resp 16 04/09/24 07:00 BP 119/62 04/09/24 07:00 Pulse Ox 98 04/09/24 07:00 FiO2 Intake & Output 04/08/24 04/09/24 04/09/24 18:59 06:59 18:59 Intake Total 218 Balance 218 Weight 66.678 kg Intake: Oral 218 Other: Voiding Method Toilet Toilet # Voids 2 - Labs CBC & Chem 7: 04/09/24 07:26 04/09/24 07:26 Labs: Abnormal Lab Results - Last 24 Hours (Table) 04/09/24 04/09/24 Range/Units 07:26 07:26 RBC 3.64 L (4.10-5.20) X 10*6/uL Hgb 11.1 L (12.0-15.0) g/dL Hct 34.5 L (37.2-46.3) % Plt Count 123 L (140-440) X 10*3/uL Calcium 7.9 L (8.7-10.3) mg/dL Assessment and Plan Time with Patient: Less than 30
[2024-04-10 08:10] LABS: Basophils # (A) 0.1 k/uL (0-0.2); Basophils % (A) 1 %; Eosinophils # (A) 0.4 k/uL (0-0.7); Eosinophils % (A) 5 %; HCT 37.1 % (34.0-46.0); HGB 11.9 gm/dL (11.4-16.0); Lymphocytes # (A) 1.6 k/uL (1.0-4.8); Lymphocytes % (A) 23 %; MCH 30.6 pg (25.0-35.0); MCHC 32.2 g/dL (31.0-37.0); MCV 95.1 fL (80.0-100.0); Mean Platelet Volume 7.8; Monocytes # (A) 0.5 k/uL (0-1.0); Monocytes % (A) 7 %; Neutrophils # (A) 4.2 k/uL (1.3-7.7); Neutrophils % (A) 61 %; Platelet Count 142 k/uL (150-450); RDW 13.1 % (11.5-15.5); WBC 6.9 k/uL (3.8-10.6)
[2024-04-10 08:17] LABS: African American GFR (CKD) >90 (>60 ml/min/1.73 sqM); Anion Gap 1 mmol/L; Blood Urea Nitrogen 10 mg/dL (7-17); Calcium 7.9 mg/dL (8.4-10.2); Carbon Dioxide 27 mmol/L (22-30); Chloride 109 mmol/L (98-107); Glucose 95 mg/dL (74-99); Non-African American GFR(CKD) 90 (>60 ml/min/1.73 sqM); Potassium 3.4 mmol/L (3.5-5.1); Sodium 137 mmol/L (137-145)
[2024-04-10] MEDS: KETOROLAC 15 MG/ML 1 ML VIAL IVP PRN (08:39)
[2024-04-10] MEDS: POTASSIUM CHLORIDE ER 20 MEQ TAB.ER PO STA (13:38)
--- NOTE | 2024-04-10 15:40 | P.PN ---
Subjective Progress Note Date: 04/10/24 Patient is a pleasant 64-year-old female came in with complaints of nausea vomiting and fever chills. Patient was started on antiviral treatment with acyclovir for her shingles on the right chest and back area below the breast. Patient denies any cough denies any dysuria. Patient is on multiple pain med ications. Patient nausea is better today. No leukocytosis. I do not have any chest x-ray or UA available at this time although infectious diseases following the patient. 04/09/2024 Patient is evaluated in follow up on the medical floor. Continues to report pain to the vesicular rash under the left breast and on the back. Being treated for shingles. On lyrica for the burning sensation. Patient reports that has improved. She continues to report fever, malaise, and body aches. Chest xray came back showing left basilar linear consolidation favor basilar bronchiectasis scarring or atelectasis over pneumonia. Underlying COPD. Her white blood cell count is 7.32. 04/10/2024 Admitted today in follow-up on the medical floor. Continues to report low-grade fever overnight. Patient continues to report pain under the right breast and back. Does report history of numbness in the lower legs bilaterally likely parasthesias and patient does report being told she has 2 herniated discs. Since she has been started on the lyrics she reports the parasthesias are gone. Patient remains in IV acyclovir. Potassium level 3.4 today. Procalcitonin level 0.08. Review of Systems Constitutional: Reports fatigue and fever Cardio vascular: denied any chest pain, palpitations Gastrointestinal: denied any nausea, vomiting, diarrhea Pulmonary: Denied any shortness of breath cough Neurologic denied any new focal deficits All inpatient medications were reviewed and appropriate changes in these medications as dictated in the interval history and assessment and plan. PHYSICAL EXAMINATION: GENERAL: The patient is alert and oriented x3, not in any acute distress. Well developed, well nourished. HEENT: Pupils are round and equally reacting to light. EOMI. No scleral icterus. No conjunctival pallor. Normocephalic, atraumatic. No pharyngeal erythema. No thyromegaly. CARDIOVASCULAR: S1 and S2 present. No murmurs, rubs, or gallops. PULMONARY: Chest is clear to auscultation, no wheezing or crackles. ABDOMEN: Soft, nontender, nondistended, normoactive bowel sounds. No palpable organomegaly. MUSCULOSKELETAL: No joint swelling or deformity. EXTREMITIES: No cyanosis, clubbing, or pedal edema. NEUROLOGICAL: Gross neurological examination did not reveal any focal deficits. SKIN: Shingles lesions as mentioned above Assessment and plan -This fever can be secondary to shingles although we need to rule out other sources of infection will obtain a chest x-ray, urine urine analysis and urine cultures patient will be continued on acyclovir -Left basilar atelectasis can attribute to the low grade fever we will gave patient an incentive spirometer. -Shingles involving the chest and back lower thoracic area continue with acyclovir patient will be resumed on the pain medications and patient will be started on Lyrica for neuropathic pain. -Possible gastritis or peptic ulcer disease/stress ulcers for which patient is on Protonix -Hypertension -Sleep apnea -Bilateral lower extremity peripheral edema has improved with lyrica. DVT prophylaxis: Lovenox GI prophylaxis Full Code continue supportive care. ID consultation The impression and plan of care has been dictated by Jolanta Grant, Nurse Practitioner as directed. Dr. Kenny MD I have performed a history and physical examination and medical decision making of this patient, discussed the same with the dictator, and agree with the dictators assessment and plan as written, documented as a scribe. Based on total visit time, I have performed more than 50% of this visit. Objective - Vital Signs Vital signs: Vital Signs Temp 98 F 04/10/24 14:11 Pulse 79 04/10/24 14:11 Resp 16 04/10/24 14:11 BP 110/62 04/10/24 14:11 Pulse Ox 96 04/10/24 14:11 FiO2 Intake & Output 04/09/24 04/10/24 04/10/24 18:59 06:59 18:59 Intake Total 120 0 Balance 120 0 Intake: Oral 120 0 Other: # Voids 1 1 1 - Labs CBC & Chem 7: 04/10/24 07:51 04/10/24 07:51 Labs: Abnormal Lab Results - Last 24 Hours (Table) 04/10/24 04/10/24 Range/Units 07:51 07:51 Plt Count 142 L (150-450) k/uL Potassium 3.4 L (3.5-5.1) mmol/L Chloride 109 H (98-107) mmol/L Calcium 7.9 L (8.4-10.2) mg/dL Assessment and Plan Time with Patient: Less than 30
--- NOTE | 2024-04-10 16:53 | P.PN ---
Subjective Progress Note Date: 04/03/24 Principal diagnosis: Reason for follow-up is right T5 dermatome shingles Patient is a 64-year-old female with a past medical history significant for hypertension sleep apnea, has been sent to the ER concerning for worsening rash to the right trunk has been diagnosed with the shingles. On today's evaluation that is 04/10/2024,the patient denies any fever or any chills, patient is breathing comfortably on room air, the patient denies chest pain shortness of breath and no significant cough, patient denies abdominal pain, no nausea vomiting or diarrhea. Patient pain to the right trunk right chest slightly decreased intensity. Patient did have a white count of 6.9, creatinine 0.72 Objective - Vital Signs Vital signs: Vital Signs Temp 98 F 04/10/24 14:11 Pulse 79 04/10/24 14:11 Resp 16 04/10/24 14:11 BP 110/62 04/10/24 14:11 Pulse Ox 96 04/10/24 14:11 FiO2 Intake & Output 04/09/24 04/10/24 04/10/24 18:59 06:59 18:59 Intake Total 120 0 Balance 120 0 Intake: Oral 120 0 Other: # Voids 1 1 1 - Exam GENERAL DESCRIPTION: Middle-aged female lying in bed in no distress RESPIRATORY SYSTEM: Unlabored breathing , decreased breath sounds at bases HEART: S1 S2 regular rate and rhythm , ABDOMEN: Soft , no tenderness Right trunk rash has decreased in intensity - Labs CBC & Chem 7: 04/10/24 07:51 04/10/24 07:51 Labs: Abnormal Lab Results - Last 24 Hours (Table) 04/10/24 04/10/24 Range/Units 07:51 07:51 Plt Count 142 L (150-450) k/uL Potassium 3.4 L (3.5-5.1) mmol/L Chloride 109 H (98-107) mmol/L Calcium 7.9 L (8.4-10.2) mg/dL Assessment and Plan (1) Shingles Current Visit: Yes Status: Acute Code(s): B02.9 - ZOSTER WITHOUT COMPLICATIONS SNOMED Code(s): 9260413 Plan: 1patient presented to hospital with vesicular rash involving the trunk and likely T5 dermatome with no evidence of any secondary cellulitis failing outpa tient oral viral therapy possibly because of extensive infection no evidence of any secondary cellulitis 2-patient did have resolution of her fever rash has decreased in intensity to continue with IV acyclovir will transition to Valtrex on discharge continue with the Lyrica for postherpetic neuralgia Dictation was produced using [employer] software. please excuse any grammatical, word or spelling errors. Time with Patient: Less than 30
[2024-04-11 07:55] VITALS: RESP 16
[2024-04-11 10:59] LABS: BUN/Creat Ratio 13.67 Ratio (12.00-20.00); Blood Urea Nitrogen 12.3 mg/dL (9.0-27.0); Carbon Dioxide 24.8 mmol/L (21.6-31.8); Chloride 108 mmol/L (96-109); Glucose 111 mg/dL (70-110); Potassium 3.8 mmol/L (3.5-5.5); Sodium 141 mmol/L (135-145)
--- NOTE | 2024-04-11 13:09 | XR ---
EXAMINATION TYPE: XR chest 2V DATE OF EXAM: 04/11/2024 12:53 PM CLINICAL INDICATION:Female, 64 years old with history of chest pain; COMPARISON: Chest radiographs from 04/08/2024 TECHNIQUE: XR chest 2V Frontal and lateral views of the chest. FINDINGS: Lungs/Pleura: There is no evidence of pleural effusion, focal consolidation, or pneumothorax. Pulmonary vascularity: Unremarkable. Heart/mediastinum: Cardiomediastinal silhouette is unremarkable. Musculoskeletal: No acute osseous pathology. IMPRESSION: Increased interstitial lung markings similar to prior.
--- NOTE | 2024-04-11 14:11 | P.PN ---
Subjective Progress Note Date: 04/11/24 Principal diagnosis: Reason for follow-up is right T5 dermatome shingles Patient is a 64-year-old female with a past medical history significant for hypertension sleep apnea, has been sent to the ER concerning for worsening rash to the right trunk has been diagnosed with the shingles. On today's evaluation that is 04/11/2024,the patient remains to be afebrile, patient is on room air not requiring supplemental oxygen and denies any shortness of breath no chest pain or cough.Patient denies having any nausea or vomiting, no abdominal pain and no diarrhea has been reported pain to the right side trunk rash has decreased. Patient did have a creatinine 0.9 white count of 6.9 as of yesterday Objective - Vital Signs Vital signs: Vital Signs Temp 98.2 F 04/11/24 07:00 Pulse 66 04/11/24 07:00 Resp 16 04/11/24 07:00 BP 153/83 04/11/24 07:00 Pulse Ox 97 04/11/24 07:00 FiO2 Intake & Output 04/10/24 04/11/24 04/11/24 18:59 06:59 18:59 Intake Total 118 118 Balance 118 118 Intake: Oral 118 118 Other: # Voids 1 2 - Exam GENERAL DESCRIPTION: Middle-aged female lying in bed in no distress RESPIRATORY SYSTEM: Unlabored breathing , decreased breath sounds at bases HEART: S1 S2 regular rate and rhythm , ABDOMEN: Soft , no tenderness Right trunk rash has decreased in intensity - Labs CBC & Chem 7: 04/10/24 07:51 04/11/24 04:32 Labs: Abnormal Lab Results - Last 24 Hours (Table) 04/11/24 Range/Units 04:32 Glucose 111 H (70-110) mg/dL Calcium 8.0 L (8.7-10.3) mg/dL Assessment and Plan (1) Shingles Current Visit: Yes Status: Acute Code(s): B02.9 - ZOSTER WITHOUT COMPLICATIONS SNOMED Code(s): 0255774 Plan: 1patient presented to hospital with vesicular rash involving the trunk and likely T5 dermatome with no evidence of any secondary cellulitis failing outpatient oral viral therapy possibly because of extensive infection no evidence of any secondary cellulitis 2-patient did have resolution of her fever rash has decreased in intensity 3-patient to continue with IV acyclovir plan is for therapy with oral Valtrex continue with the Lyrica for postherpetic neuralgia Dictation was produced using [employer] dictation software. please excuse any grammatical, word or spelling errors. Time with Patient: Less than 30
[2024-04-11 14:45] VITALS: BP 144/74; PULSE 75; TEMP 98.1
--- NOTE | 2024-04-14 15:33 | P.DS ---
Providers Date of admission: 04/08/24 10:49 Attending physician: Sahil Engle Consults: 04/08/24 08:10 Consult Physician Urgent Consulting Provider: Mary Nair Consult Reason/Comments: Shingles Do you want consulting provider notified?: Yes Primary care physician: Annemarie Doherty Hospital Course: Final Diagnosis -Left basilar atelectasis can attribute to the low grade fever we will gave patient an incentive spirometer. -Shingles involving the chest and back lower thoracic area continue with acyclovir patient will be resumed on the pain medications and patient will be started on Lyrica for neuropathic pain. -Possible gastritis or peptic ulcer disease/stress ulcers for which patient is on Protonix -Hypertension -Sleep apnea -Bilateral lower extremity peripheral edema has improved with lyrica. Discharge Disposition Stable for discharge home. As mentioned she will complete a course of oral acyclovir for the shingles. She is also given Lyrica for the next 15 days for the neuropathic pain related to the shingles. Patient to follow up with her PCP Dr. Doherty in the office in 1 to 2 days. Hospital Course Patient is a pleasant 64-year-old female came in with complaints of nausea vomiting and fever chills. Patient was started on antiviral treatment with acyclovir for her shingles on the right chest and back area below the breast. Patient denies any cough denies any dysuria. Patient is on multiple pain medications. Patient nausea is better today. No leukocytosis. Continues to report pain to the vesicular rash under the left breast and on the back. Being treated for shingles. On lyrica for the burning sensation. Patient reports that has improved. She continues to report fever, malaise, and body aches. Chest xray came back showing left basilar linear consolidation favor basilar bronchiectasis scarring or atelectasis over pneumonia. Underlying COPD. Her white blood cell count is 7.32. Procalcitonin level comes back at 0.08. Her urinalysis is normal. Patient reports improvement in her neuropathic pain and has been afebrile now for the last 24 hours. She will be discharged home to finish a course of oral acyclovir for the shingles. Follow-up with ID in the office. L ungs are clear S1-S2 auscultated abdomen is soft and nontender. Focal neurological exam is negative. Please see medication reconciliation for a list of current medications. Thank you for allowing us to participate in the care of this patient. The impression and plan of care has been dictated by Jolanta Grant, Nurse Practitioner as directed. Dr. Kenny MD I have performed a history and physical examination and medical decision making of this patient, discussed the same with the dictator, and agree with the dictators assessment and plan as written, documented as a scribe. Based on total visit time, I have performed more than 50% of this visit. Patient Condition at Discharge: Fair Plan - Discharge Summary New Discharge Prescriptions: New HYDROcodone/APAP 5-325MG [[place] 5-325] 1 each PO BID #4 tab valACYclovir HCL [Valtrex] 500 mg PO BID 5 Days #10 tab Famotidine [Pepcid] 20 mg PO DAILY #30 tablet Pregabalin [Lyrica] 100 mg PO BID 15 Days #30 cap Continue Metoprolol Tartrate [Lopressor] 25 mg PO BID Ergocalciferol (Vitamin D2) [Drisdol (50,000 Iu)] 1,250 mcg PO Q30D Diclofenac Sodium Gel [Voltaren 1% Gel] 2 - 4 gm TOPICAL QID PRN PRN Reason: Shortness Of Breath Acetaminophen [Tylenol Arthritis] 1,300 mg PO Q6H PRN PRN Reason: Pain Or Fever > 100.5 Cyanocobalamin (Vitamin B-12) [Vitamin B-12] 1,000 mcg PO DAILY hydroCHLOROthiazide [Hydrodiuril] 25 mg PO DAILY Discontinued Famciclovir [Famvir] 500 mg PO Q8HR Discharge Medication List Acetaminophen [Tylenol Arthritis] 1,300 mg PO Q6H PRN 04/08/24 [History] Cyanocobalamin (Vitamin B-12) [Vitamin B-12] 1,000 mcg PO DAILY 04/08/24 [His tory] Diclofenac Sodium Gel [Voltaren 1% Gel] 2 - 4 gm TOPICAL QID PRN 04/08/24 [History] Ergocalciferol (Vitamin D2) [Drisdol (50,000 Iu)] 1,250 mcg PO Q30D 04/08/24 [History] Metoprolol Tartrate [Lopressor] 25 mg PO BID 04/08/24 [History] hydroCHLOROthiazide [Hydrodiuril] 25 mg PO DAILY 04/08/24 [History] Famotidine [Pepcid] 20 mg PO DAILY #30 tablet 04/11/24 [Rx] HYDROcodone/APAP 5-325MG [[place] 5-325] 1 each PO BID #4 tab 04/11/24 [Rx] Pregabalin [Lyrica] 100 mg PO BID 15 Days #30 cap 04/11/24 [Rx] valACYclovir HCL [Valtrex] 500 mg PO BID 5 Days #10 tab 04/11/24 [Rx] Follow up Appointment(s)/Referral(s): Annemarie Doherty MD [Primary Care Provider] - 1-2 days Mary Nair MD [STAFF PHYSICIAN] - 1 Week Patient Instructions/Handouts: Jenna (DC) Discharge Disposition: HOME SELF-CARE
== END 2024-04-11 17:44 | disposition home or self-care (01) | DRG 596 ==
LOC: EC 06:05 → 6NMEDSUR 10:49 → OBSVTOIN 10:49 → 6NMEDSUR 14:55 → UNDODISOB 04-11 17:44
PROVIDERS: ADMIT Hospitalist; ATTEND Hospitalist
DX: B02.9 Zoster without complications (principal); J47.9 Bronchiectasis, uncomplicated; I10 Essential (primary) hypertension; G47.30 Sleep apnea, unspecified; M79.89 Other specified soft tissue disorders; Z90.49 Acquired absence of other specified parts of digestive tract; Z86.19 Personal history of other infectious and parasitic diseases; Z79.899 Other long term (current) drug therapy; F17.200 Nicotine dependence, unspecified, uncomplicated; J44.9 Chronic obstructive pulmonary disease, unspecified; Z88.1 Allergy status to other antibiotic agents; Z88.5 Allergy status to narcotic agent; Z88.0 Allergy status to penicillin; Z88.8 Allergy status to other drugs, medicaments and biological substances; K29.70 Gastritis, unspecified, without bleeding
CPT/HCPCS: 36415; 71046; 80048; 80053; 81003; 84145; 85025; 85027; 96361; 96365; 96366; 96367; 96372; 96375; 96376; 99285

== ENCOUNTER → 2025-01-04 | Outpatient (CLI) | payer BC ==
--- NOTE | 2025-01-04 19:32 | MR ---
EXAMINATION TYPE: MR knee LT wo con DATE OF EXAM: 01/04/2025 6:59 PM COMPARISON: None. CLINICAL INDICATION: Female, 64 years old with history of M25.562 PAIN IN LEFT KNEE, Left knee pain a nd swelling x6 weeks, pain caused knee to give out and she fell TECHNIQUE: Multi planar, multi sequence imaging was performed of the knee including: Triplane proton density fat-saturated images and T1-weighted imaging. No Gadolinium was given. IV Contrast: mL (none if empty) FINDINGS: Medial meniscus: Free edge fraying of the posterior horn and body. Body is slightly displaced med ially r up to 3 mm. Medial femorotibial cartilage: Grade-IV chondromalacia. Medial collateral ligament: Intact Lateral meniscus: Intact Lateral femorotibial cartilage: Grade-III chondromalacia. Lateral collateral ligament complex: Intact Patellofemoral alignment: Normal Patellofemoral cartilage: Grade-IV chondromalacia. Extensor mechanism: Intact. Joint/bursal fluid: None. Muscles/tendons: The patellar tendon, quadriceps tendon, IT band, pes anserinus tendons, semimembrano osmin tendon, popliteus tendon, and biceps femoris tendon are all within normal limits. Bone marrow: Linear low-density line is seen overlying the medial aspect the tibial plateau with surr ounding high PD edema. Bone marrow edema involving the medial tibial plateau with subchondral fractur e. Degeneration changes with osteophyte formation of the femoral condyles and tibial plateau. Anterior cruciate ligament: Intact. Posterior cruciate ligament: Intact. Soft tissues: Small Abad's cyst is present. IMPRESSION: 1. Subchondral fracture of the medial tibial plateau articular surface. 2. No definitive evidence to suggest meniscal tear nor ligamentous injury. 3. Medial meniscus posterior horn and midbody fraying with mild displacement of the body. 4. Moderate degeneration changes and chondromalacia. [facility], , 01/04/2025 7:29 PM
== END | disposition home or self-care (01) ==
LOC: RADMRIMAIN 18:05
PROVIDERS: ATTEND Orthopaedic Surgery
DX: S82.132A Displaced fracture of medial condyle of left tibia, initial encounter for closed fracture (principal); M17.12 Unilateral primary osteoarthritis, left knee; M94.262 Chondromalacia, left knee

== ENCOUNTER → 2025-01-13 | Outpatient (CLI) | payer BC ==
[2025-01-13 18:36] LABS: Basophils # (A) 0.06 X 10*3/uL (0.00-0.10); Basophils % (A) 0.8 %; Eosinophils # (A) 0.11 X 10*3/uL (0.04-0.35); Eosinophils % (A) 1.5 %; HCT 40.8 % (37.2-46.3); HGB 13.4 g/dL (12.0-15.0); Lymphocytes # (A) 2.76 X 10*3/uL (0.90-5.00); Lymphocytes % (A) 38.1 %; MCH 30.7 pg (27.0-32.0); MCHC 32.8 g/dL (32.0-37.0); MCV 93.4 FL (80.0-97.0); Mean Platelet Volume 10.8 FL (9.5-12.2); Monocytes # (A) 0.66 X 10*3/uL (0.20-1.00); Monocytes % (A) 9.1 %; NRBC Per 100 WBC 0 X 10*3/uL (0.00-0.01); Neutrophils # (A) 3.65 X 10*3/uL (1.80-7.70); Neutrophils % (A) 50.4 %; Platelet Count 224 X 10*3/uL (140-440); RBC 4.37 X 10*6/uL (4.10-5.20); RDW 13.3 % (11.5-14.5); WBC 7.25 X 10*3/uL (4.50-10.00)
[2025-01-13 19:54] LABS: Anion Gap 12.1 mmol/L (4.00-12.00); Carbon Dioxide 26.9 mmol/L (21.6-31.8); Potassium 3.9 mmol/L (3.5-5.5)
== END | disposition home or self-care (01) ==
LOC: LABWHC1 12:21
PROVIDERS: ATTEND Orthopaedic Surgery
DX: Z01.812 Encounter for preprocedural laboratory examination (principal); M23.92 Unspecified internal derangement of left knee
CPT/HCPCS: 80051; 85025; 93005